=== PATIENT | male | born 1980 | race Caucasian/White ===

== ENCOUNTER 2018-10-23 22:15 | Emergency (ER) | payer SELFPAY ==
[~2018-10-23] VITALS: Ht 175.3 cm; Wt 125.8 kg
[2018-10-23 22:26] VITALS: BP 143/94; PULSE 104; RESP 22; Ht 175.3 cm; Wt 125.8 kg
[2018-10-24] MEDS ORDERED: LORAZEPAM 1 MG TAB PO ONE
== END 2018-10-24 00:45 | disposition home or self-care (01) ==
LOC: E/R 22:15
DX: F41.9 Anxiety disorder, unspecified (principal); T43.205A Adverse effect of unspecified antidepressants, initial encounter
CPT/HCPCS: 99283